=== PATIENT | male | born 1980 | race Caucasian/White ===

== ENCOUNTER → 2023-03-31 15:51 | Outpatient (BNVA) | payer BC, SELFPAY | PROVIDERS: Visit Provider Internal Medicine Rheumatology ==

== ENCOUNTER 2023-10-03 14:58 | Outpatient (REF) | payer BC, SELFPAY ==
[2023-10-03 16:03] LABS: MANUAL DIFF FLAG NO
[2023-10-03 16:13] LABS: Basophils Absolute Auto 0.1 X10*3/uL (0.0-0.2); Basophils Percent Auto 0.8 % (0-2); Eosinophils Absolute Auto 0.3 X10*3/uL (0.0-0.4); Eosinophils Percent Auto 4.6 % (0-4); Hematocrit 40.9 % (42.0-52.0); Hemoglobin 14.4 g/dl (14.0-18.0); Imm Gran Abs Auto 0.02 X10*3/uL (0.00-0.03); Imm Gran Pct Auto 0.3 % (0.0-0.4); Lymphocytes Absolute Auto 1.6 X10*3/uL (1.2-4.9); Lymphocytes Percent Auto 26.2 % (20-40); Mean Corpuscular HGB Conc 35.2 g/dl (31.0-36.0); Mean Corpuscular Hemoglobin 32.1 pg (27.0-33.0); Mean Corpuscular Volume 91.1 fL (80.0-98.0); Monocytes Absolute Auto 0.4 X10*3/uL (0.1-1.2); Neutrophils Absolute Auto 3.8 x10*3/uL (2.0-8.3); Neutrophils Percent Auto 61.1 % (45-73); Platelet Count 232 X10*3/uL (160-400); Red Blood Count 4.49 X10*6/uL (4.60-5.80); Red Cell Distribution Width 12.6 % (11.0-16.0); White Blood Count 6.3 X10*3/uL (4.8-10.8)
[2023-10-03 16:30] LABS: C Reactive Protein 0.22 mg/dL (< or = 0.50)
[2023-10-03 17:27] LABS: Erythrocyte Sedimentation Rate 2 MM/HR (0-15)
[2023-10-04 04:45] LABS: HBc Num1 0.17 S/CO (0.00-0.79); HBsAGNum1 0.52 S/CO (0.00-0.99); Hepatitis A Antibody IgM 0.22 Index (0-0.79); Hepatitis B Core Antibody Nonreactive (Nonreactive); Hepatitis B Surface Antigen Negative (Negative); ~Hepatitis A Antibody IgM Nonreactive (Nonreactive)
[2023-10-04 04:51] LABS: HBS Num1 80.35 mIU/mL (0-7.99); ~HepC Num1 0.25 S/CO (0.00-0.79); ~Hepatitis B Surface Antibody REACTIVE (Nonreactive); ~Hepatitis C Antibody Nonreactive (Nonreactive)
== END 2023-10-03 14:59 | disposition home or self-care (01) ==
LOC: HO.HMGCLDS 14:58
PROVIDERS: Visit Provider Internal Medicine Rheumatology
DX: L40.50 Arthropathic psoriasis, unspecified (principal); Z79.899 Other long term (current) drug therapy
CPT/HCPCS: 36415; 85025; 85652; 86140; 86704; 86706; 86709; 86803; 87340

== ENCOUNTER 2023-10-06 15:10 | Outpatient (AMB) | payer BC, SELFPAY ==
[2023-10-06 15:17] VITALS: BP 146/98; PULSE 82; BMI 35.1
--- NOTE | 2023-10-06 15:17 | A.OFFVIS_ITS ---
Intake Vital Signs 10/06/23 15:17 Height 5 ft 7 in Weight 223 lb 15.834 oz BMI 35.1 BP 146/98 H Blood Pressure Location Rt brachial Position Sitting Pulse 82 Pulse Source Pulse Oximeter Intake Visit Reasons: psa Intake Note: Patient presents today to follow up on PsA. Patient stated he has not increased Humira weekly due to not having enough injections to do so, he is currently using Humira every 2 weeks. Last seen by Schu 04/10/23. Technician Telecommunication Systems Required: No Accompanied by: Self / Same As Patient Allergies No Known Allergies Allergy (Verified 10/06/23 15:18) HPI HPI Comments History of Present Illness Details The patient returns for evaluation of his psoriasis and psoriatic arthritis. He remains on the Humira 40 mg every 2 weeks. We had hoped to increase the frequency of that medication as he seems to get more symptoms in the last 4-5 days after the Humira injection. This mostly consists of increased pain in the lateral hips, buttocks, and knees and feet. No swelling is noted. Most of the pains are noted when he 1st gets up in the morning and last for about 2 hours. He remains with dystrophic nails but they are not painful. He has some patches of inflamed skin on the chest. I had been hoping that he would do the lab work shortly after the last visit so we could put the prior authorization through with fresh lab work. He did get the sed rate and CRP done and those were normal. The hepatitis serologies were negative but he was not able to get the T spot testing done because of its necessity to be done in the mornings. 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 He has not had any foreign travel or exposure to people with tuberculosis so I think the risk is extremely low that he would develop TB. He had some a series of negative QuantiFERON testing done over the past 7 years and they all were negative. The last was about 2 years ago. [facility] Medical History Long-term use of immunosuppressant medication Psoriasis Psoriatic arthritis Surgical History History of surgery Hx of vasectomy History of carpal tunnel surgery S/P right rotator cuff repair History of rotator cuff surgery Family History Father Prostate cancer, Onset Age: 65 Mother Type 2 diabetes mellitus Paternal Grandmother Stroke Social History Alcohol intake: current Alcohol intake frequency: a few times a week Alcohol type: beer Patient Tobacco Use Status: Current everyday Tobacco user Cigarette Packs Per Day: 0.5 Cigarettes Per Day: 10 Current occupational status: employed Current occupation: [employer] Review of Systems Const Details: Negative for appetite change, weight change, fever, chills, malaise and fatigue Eyes Details: Negative for vision change, dry eyes,headaches and dizziness ENT Details: Negative for hearing change, tinnitus, oral ulcer, nose bleeds and oral dryness. Card Details: Negative chest pain, edema and syncope Resp Details: Negative for SOB, cough and wheezing GI Details: Negative indigestion/heartburn, nausea, abdominal pain, bowel changes, diarrhea, constipation and bloody stool. Endo Details: Negative for polyuria and polydypsia Juwan/Lymph Details: Negative for excessive bruising or bleeding. Physical Exam Vital Signs: Last Vital Signs Pulse 82 10/06/23 15:17 BP 146/98 H 10/06/23 15:17 BMI result Body Mass Index 35.1 APPEARANCE: Patient in no acute distress EYES no redness, pupils equal and reactive to light, eyelids normal SKIN: There are dystrophic nail changes in the right 4th fingernail and the 2nd through 5th fingernail on the left. None of these are tender today. The other nails look normal. The left hand fingers all have brownish pains consistent with tobacco stains. He has scattered patches of scaly, red skin across the abdomen and anterior chest. Also there is some irritated skin in the ear canals. JOINT EXAM:.?? Cervical Spine: decrease in lateral flexion but without pain.? No tenderness. Thoracic Spine:.? No scoliosis.? No tenderness on palpation. Lumbar Spine:.? Alignment normal.? Full range of motion without pain, no tenderness. Chest Wall:.? No tenderness, swelling, increased warmth or erythema. Hands:.? Normal pain-free range of motion without tenderness, swelling, increased warmth or erythema. 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 No flexor tendon triggering or tenderness.. Wrists:.? Normal pain-free range of motion without tenderness, swelling, increased warmth or erythema. Elbows: Right: Slight pain with extremes of normal flexion or extension. No tenderness or swelling over the lateral epicondyle or the joint space. Left: Normal pain-free range of motion without tenderness, swelling, increased warmth or erythema. Shoulders:.??Left: Mild discomfort with extremes of motion but no weakness or swelling.? No adenopathy.? Right:? Full range of motion without pain. No tenderness, weakness, swelling, increased warmth or erythema. Hips:.? Full range of motion with some lumbar and lateral pain with extremes of internal or external rotation. No groin pain with motion. Hip bursa:.? No tenderness. Knees:.?? Normal pain-free range of motion without tenderness, swelling, increased warmth or erythema.? There is no effusion or crepitation Ankles:.? Normal pain-free range of motion without tenderness, swelling, increased warmth or erythema. Feet: Normal pain-free range of motion without tenderness, swelling, increased warmth or erythema. ? Results Reviewed Results Reviewed: Laboratory Tests 10/03/23 15:05 WBC 6.3 ESR 2 C-Reactive Protein 0.22 Laboratory Tests 10/03/23 15:05 Hepatitis A IgM Ab Nonreactive Hep Bs Antigen Negative Hep Bs Antibody REACTIVE Hep B Core Total Ab Nonreactive Hepatitis C Ab (EIA) Nonreactive Assessment & Plan Assessment & Plan (1) Psoriasis: Comment: with nail involvement Code(s): L40.9 - Psoriasis, unspecified (2) Long-term use of immunosuppressant medication: Code(s): Z79.899 - Other intermediate manager (current) drug therapy (3) Psoriatic arthritis: Comment: Sulfasalazine started 09/24/16, changed (failure) to Humira 12/2016 Code(s): L40.50 - Arthropathic psoriasis, unspecified Plan Psoriatic arthritis and psoriasis with suboptimal control on the Humira. He does get a good response in the 1st week or so after the Humira but then symptoms worsen towards the 2nd week after the Humira. We will see if we can put through a prior authorization if needed for weekly Humira. He will try to get the T spot testing done if possible but I think it is very low likely that he is going to be a positive test. A follow-up in 3 months is recommended. If he does well on the weekly Humira he could push that next visit out to 6 months. Coding Level of Care Code Est Pt Level 3 (71432) Diagnoses Psoriasis L40.9 Long-term use of immunosuppressant medication Z79.899 Psoriatic arthritis L40.50
== END 2023-10-06 16:14 | disposition home or self-care (01) ==
PROVIDERS: Visit Provider Internal Medicine Rheumatology
DX: L40.9 Psoriasis, unspecified (principal); Z79.899 Other long term (current) drug therapy; L40.50 Arthropathic psoriasis, unspecified
CPT/HCPCS: 99213

== ENCOUNTER → 2023-10-06 15:10 | Outpatient (BNVA) | payer BC, SELFPAY | PROVIDERS: Visit Provider Internal Medicine Rheumatology ==

== ENCOUNTER 2024-09-01 15:29 | Outpatient (AMB) | payer BC, SELFPAY ==
[2024-09-01 15:37] VITALS: BP 122/68; PULSE 62; O2SAT 98; BMI 33.5
--- NOTE | 2024-09-01 15:37 | A.OFFVIS_ITS ---
Vital Signs 3 09/01/24 15:37 Height 5 ft 7 in Weight 213 lb 10.047 oz BMI 33.5 BP 122/68 Blood Pressure Location Lt brachial Position Sitting Pulse 62 Pulse Source Pulse Oximeter Pulse Oximetry (%) 98 Oxygen Delivery Method Room Air Intake Visit Reasons: psa/CM Intake Note: Patient last seen by Johnathan Smith on 10/06/23. Presents today for PsA follow up. Patient would like refill of Econazole. Allergies No Known Allergies Allergy (Verified 10/06/23 15:18) Medication List - Last Reconciled 09/01/24 by Catalina Hoffman MD betamethasone dipropionate 0.05% 1 appl topical DAILY clobetasol 0.05% grams topical BID econazole 1% 1 appl topical BID Humira(CF) Pen (adalimumab) 40 mg (0.4 mL) subcut QWEEK NS HPI Comments Details: This is a 44-year-old male with psoriasis and psoriatic arthritis who presents for follow-up. He was last seen by Dr. Jacobs 09/2023. He had an appointment in March but it was canceled. Last visit Humira was advanced to 40 mg weekly. Patient stated that since Humira was advanced to weekly there has not been much change. He states that he continues to have pain in his fingers. Associated with minimal swelling. Generalized morning stiffness lasting 20-30 minutes. 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 He continues to have intermittent psoriasis rashes on his arms and torso. States that they get worse in the summer when he is sweating more. [facility] Medical History Long-term use of immunosuppressant medication Psoriasis Psoriatic arthritis Surgical History History of surgery Hx of vasectomy History of carpal tunnel surgery S/P right rotator cuff repair History of rotator cuff surgery Family History Father Prostate cancer, Onset Age: 65 Mother Type 2 diabetes mellitus Paternal Grandmother Stroke Social History Alcohol intake: current Alcohol intake frequency: a few times a week Alcohol type: beer Patient Tobacco Use Status: Current everyday Tobacco user Cigarette Packs Per Day: 0.5 Cigarettes Per Day: 10 Current occupational status: employed Current occupation: Formerly [employer] Review of Systems [facility] [facility] [employer] Reports arthralgias, Reports joint swelling and Reports stiffness Skin/Breast Reports lesions, Reports nail changes and Reports rash Physical Exam Vital Signs: Last Vital Signs Pulse 62 09/01/24 15:37 BP 122/68 09/01/24 15:37 Pulse Ox 98 09/01/24 15:37 Oxygen Delivery Method Room Air 09/01/24 15:37 BMI result Body Mass Index 33.5 Const General: cooperative, healthy appearing and comfortable Nutritional Appearance: obese Orientation/consciousness: patient oriented x3 Limitations: no limitations HEENT Head: Yes normocephalic and Yes atraumatic Mouth: moist mucous membranes Resp Effort & Inspection: normal respiratory effort and able to speak in complete sentences Auscultation: clear to auscultation bilaterally Neuro General: patient oriented x3 Extrem Other: There is no active synovitis. No swollen or tender joints on exam. Normal bilateral hand gis application developer strength No sausage digits Significant onycholysis Psoriasis patches on arms and , chest and abdomen Assessment & Plan Assessment & Plan (1) Psoriatic arthritis: Comment: Sulfasalazine started 09/24/16, changed (failure) to Humira 12/2016 Humira advanced to weekly 10/2023 Code(s): L40.50 - Arthropathic psoriasis, unspecified Category: Medical Plan: This is a 44-year-old male with psoriasis and psoriatic arthritis who presents for follow-up. Since Humira was advanced to once weekly dosing since the beginning of the year. Patient has not noticed much improvement. Patient continues to complain of joint pains. Continues to have some morning stiffness lasting 20 minutes or so. There are no swollen joints on exam. I think the inflammatory component of his joint pains is well controlled, his pains are likely degenerative and mechanical. 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 However he continues to have psoriasis rashes and psoriasis nail changes. We discussed switching to Taltz or Cosentyx which may have better skin and nail efficacy rather than Humira. Patient will think about it and let us know For now continue with Humira 40 mg weekly Continue with topical steroids as needed for active psoriasis rashes Patient will do labs in week. Follow-up in 6 months (2) Psoriasis: Comment: with nail involvement Code(s): L40.9 - Psoriasis, unspecified Category: Medical (3) Long-term use of immunosuppressant medication: Code(s): Z79.899 - Other terminologist (current) drug therapy Category: Medical Plan: Side effects of Humira were discussed with the patient in detail including increased risk of infection, demyelinating disease, reactivation of latent TB, possible increased risk of solid and skin tumors. Patient fully aware. Advised patient to seek medical care [facility] if patient has an infection and advised patient to stop the medication until the infection is resolved. Plan I spent 30 minutes reviewing patient's chart, evaluating patient, ordering diagnostic workup, counseling patient and documenting in the chart Orders: Orders 2 Comprehensive Met. Panel Today L40.50 - Arthropathic psoriasis, unspecified Hepatitis A,B,C Profile Today Z11.59 - Encounter for screening for other viral diseases Complete Blood Count Auto Diff Today L40.50 - Arthropathic psoriasis, unspecified C Reactive Protein Today L40.50 - Arthropathic psoriasis, unspecified Erythrocyte Sedimentation Rate Today L40.50 - Arthropathic psoriasis, unspecified T Spot TB Today Z11.7 - Encounter for testing for latent tuberculosis infection Medications: Refilled 2 betamethasone dipropionate 0.05% 1 appl topical DAILY 45 grams 3RF L40.9 - Psoriasis, unspecified Coding Level of Care Code Est Pt Level 4 (83764) Complex EM visit Add On G2211 Diagnoses Psoriatic arthritis L40.50 Psoriasis L40.9 Long-term use of immunosuppressant medication Z79.899
== END 2024-09-01 15:56 | disposition home or self-care (01) ==
LOC: HO.RHE 15:30
PROVIDERS: PCP Internal Medicine; Visit Provider Student in an Organized Health Care Education/Training Program
DX: L40.50 Arthropathic psoriasis, unspecified (principal); L40.9 Psoriasis, unspecified; Z79.899 Other long term (current) drug therapy
CPT/HCPCS: 99214

== ENCOUNTER → 2024-09-01 15:29 | Outpatient (BNVA) | payer BC, SELFPAY | PROVIDERS: PCP Internal Medicine; Visit Provider Student in an Organized Health Care Education/Training Program ==

== ENCOUNTER 2025-03-22 13:49 | Outpatient (REF) | payer BC, SELFPAY ==
[2025-03-22 14:02] LABS: MANUAL DIFF FLAG NO
--- OUTSIDE RECORDS SUMMARY | 2025-03-22 14:07 | XMS_ITS | Encounter Summary ---
Author Organization [facility] Address [address] [place] [address] Care Team Providers Care Goldbeater Name Role Phone Unavailable Primary Care Provider Unavailabl e Reason for Referral * Consultation (Routine) - Closed Specialty Diagnoses / Procedures Referred By Contac t Referred To Contact Rheumatology Diagnoses History of psoriatic arthritis Jc Bates MD [address] [place] [id number] Phone: tel: fax: [facility] - Rheumatology [address] [place] [address] [address] [place] [address] Phone: tel: fax: Referral ID Status Reason Start Date Expiration Date V isits Requested Visits Authorized [id number] Closed Specialty Services Required 03/02/2025 03/02/2026 1 1 Encounter Details Date Type Department Care Team (Late st Contact Info) Description 03/02/2025 Telephone Adult Medicine [address] [phone] Jc Bates MD [address] [place] [id number] Social History Tobacco Use Types Packs/Day Years Used Date Smoking Tobacco: Every Day Cigarettes Smokeless Tobacco: Never Alcohol Use Standard Drinks/Week Comments Yes 0 (1 standard drink = 0.6 oz pur e alcohol) Sex and Gender Information Value Date Recorded Sex Assigned at Not on file Legal Sex Male 8:23 PM EST Gender Identity Not on file Sexual Orientation Not on file documented as of this encounter Progress Notes * Radha Hogan - 03/02/2025 4:08 PM EDT What insurance does the patient have today? Payor: @[email or web address] Referrals cannot be processed if the insurance is not accurate. If the insurance listed above is NO BILLING INFORMATION FOUND FOR THIS ENCOUNTER then the patients correct insurance must be obtainedand registered in [facility] or their referral can not be processed. Name of person calling to request this referral? patient Referred To Provider (Include first and last name): Catalina Hoffman MD NPI (if known): [id number] Order/Specialty requested rheumatology Chief Complaint (Note: This is not a body part or a procedure): psoriatic arthritis Has the patient seen provider for this problem/Dx before? yes Referred To Provider Address: [address] [place] [address] Referred To Provider Referred To Provider Fax: [phone] Does patient have an appointment scheduled?: yes If yes, what is the date of the appointment?: 03/28/2025 Is this a retro request? no Number of visits requested: 6 documented in this encounter Plan of Treatment Scheduled Referrals Name Type Priority Associated Diagnoses Order Schedule Ambulatory referral to Rheumatology Outpatient Referral Routine History of psoriatic arthritis Expected: 03/02/2025, Expires: 03/02/2026 documented as of this encounter Visit Diagnoses Diagnosis History of psoriatic arthritis- Primary Personal history of arthritis documented in this encounter
[2025-03-22 14:46] LABS: Basophils Absolute Auto 0.1 X10*3/uL (0.0-0.2); Basophils Percent Auto 0.7 % (0-2); Eosinophils Absolute Auto 0.2 X10*3/uL (0.0-0.4); Eosinophils Percent Auto 2.8 % (0-4); Hematocrit 44.1 % (42.0-52.0); Hemoglobin 15.8 g/dl (14.0-18.0); Imm Gran Abs Auto 0.02 X10*3/uL (0.00-0.03); Imm Gran Pct Auto 0.3 % (0.0-0.4); Lymphocytes Absolute Auto 1.7 X10*3/uL (1.2-4.9); Lymphocytes Percent Auto 24.1 % (20-40); Mean Corpuscular HGB Conc 35.8 g/dl (31.0-36.0); Mean Corpuscular Hemoglobin 32.5 pg (27.0-33.0); Mean Corpuscular Volume 90.7 fL (80.0-98.0); Mean Platelet Volume 9.6 fL (9.4-12.4); Monocytes Absolute Auto 0.6 X10*3/uL (0.1-1.2); Monocytes Percent Auto 8.8 % (2-11); Neutrophils Absolute Auto 4.5 x10*3/uL (2.0-8.3); Neutrophils Percent Auto 63.3 % (45-73); Platelet Count 240 X10*3/uL (160-400); Red Blood Count 4.86 X10*6/uL (4.60-5.80); Red Cell Distribution Width 13.1 % (11.0-16.0); White Blood Count 7.1 X10*3/uL (4.8-10.8)
[2025-03-22 15:31] LABS: Erythrocyte Sedimentation Rate 3 MM/HR (0-15)
[2025-03-22 16:17] LABS: Alanine Aminotransferase 50 U/L (0-40); Albumin Level 4.7 g/dL (3.5-5.0); Alkaline Phosphatase 41 U/L (39-117); Anion Gap 12 (12-20); Aspartate Amino Transferase 43 U/L (5-37); Bilirubin Total 0.4 mg/dL (0.0-1.0); Blood Urea Nitrogen 17 mg/dL (9-16); C Reactive Protein 0.25 mg/dL (< or = 0.50); Calcium 9.3 mg/dL (8.4-10.2); Carbon Dioxide 26 mmol/L (22-29); Chloride 104 mmol/L (96-108); Estimated Glomerular Filt Rate > 60; Glucose Random 97 mg/dL (60-115); Potassium 4.1 mmol/L (3.3-5.1); Sodium 138 mmol/L (135-145); Total Protein 7.8 g/dL (6.5-8.0)
[2025-03-23 09:00] LABS: HBsAGNum1 0.32 S/CO (0.00-0.99); Hepatitis B Core Antibody Nonreactive (Nonreactive); Hepatitis B Surface Antigen Negative (Negative); ~HepC Num1 0.23 S/CO (0.00-0.79); ~Hepatitis A Antibody IgM Nonreactive (Nonreactive); ~Hepatitis B Surface Antibody REACTIVE (Nonreactive); ~Hepatitis C Antibody Nonreactive (Nonreactive)
[2025-03-25 00:34] LABS: TS Negative Control Passed; TS Panel A 0; TS Panel B 0; TS Positive Control Passed; TSpotTB Negative (Negative)
== END 2025-03-22 13:50 | disposition home or self-care (01) ==
LOC: HO.LAB 13:49
PROVIDERS: PCP Internal Medicine; Visit Provider Student in an Organized Health Care Education/Training Program
DX: L40.50 Arthropathic psoriasis, unspecified (principal); Z11.7 Encounter for testing for latent tuberculosis infection; Z11.59 Encounter for screening for other viral diseases
CPT/HCPCS: 36415; 80053; 85025; 85652; 86140; 86481; 86704; 86706; 86709; 86803; 87340

== ENCOUNTER 2025-03-29 15:50 | Outpatient (AMB) | payer BC, SELFPAY ==
[2025-03-29 15:53] VITALS: BP 130/72; PULSE 81; O2SAT 98; BMI 34.3
--- NOTE | 2025-03-29 15:53 | A.OFFVIS_ITS ---
Vital Signs 03/29/25 15:53 Height 5 ft 7 in Weight 218 lb 14.704 oz BMI 34.3 BP 130/72 Blood Pressure Location Lt brachial Position Sitting Pulse 81 Pulse Source Pulse Oximeter Pulse Oximetry (%) 98 Oxygen Delivery Method Room Air Intake Visit Reasons: PsA Intake Note: Patient last seen by Doctor Catalina Hoffman on 09/01/24. Presents today for PsA follow up and test results. Patient would like refill of Econazole cream. Accompanied by: Self / Same As Patient Allergies No Known Allergies Allergy (Verified 03/29/25 15:57) Medication List - Last Reconciled 03/29/25 by Kayce Saxena MD betamethasone dipropionate 0.05% 1 appl topical DAILY clobetasol 0.05% grams topical BID econazole nitrate 1% 1 appl topical BID Humira(CF) Pen (adalimumab) 40 mg (0.4 mL) subcut QWEEK NS HPI Comments Details: Patient is a 44-year-old male with psoriasis complicated by psoriatic arthritis here today for follow up Interval History: Patient last seen 09/01/[address] Hoffman. At that time he was following up for his psoriasis and psoriatic arthritis. He was on Humira 40 mg weekly with continued pain in his fingers and 20-30 minutes of morning stiffness. Also with intermittent psoriatic rashes on his arms and torso which get worse in the summer when he is sweating more. Given his significant psoriasis and nail disease it was recommended to switch to Taltz or Cosentyx however patient declined at that time. Still complaining of AM stiffness 20-30 min Main issue is his skin with continue PsO rash to his torso and neck, as well as bilateral arms Rheumatologic History: Sulfasalazine started 09/24/16, changed (failure) to Humira 12/2016 Humira advanced to weekly 10/[address] Jacobs: The patient presents today for evaluation of his psoriasis, psoriatic arthritis and tinea skin infections. I had last seen him back in March of 2021. The joint symptoms seem stable on Humira 40 mg every 2 weeks. He does have clobetasol cream for the psoriasis and uses econazole cream for rash is across the chest that seems to be due to tinea. 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 Medically he had COVID twice in the last year and half. The 2nd event was relatively minor illness. He was hospitalized back in November with a knee abrasion that got infected such that cellulitis developed. He was treated with intravenous antibiotics and then oral antibiotics and the symptoms have subsided. He had to hold the Humira during the COVID episodes and during the cellulitis so there was a break in treatment that resulted in a flare-up of his skin disease and arthritis. He is not taking any analgesics currently. Current Rheumatology Medication(s): Humira 40mg SC weekly [facility] Medical History Long-term use of immunosuppressant medication Psoriasis Psoriatic arthritis Surgical History History of surgery Hx of vasectomy History of carpal tunnel surgery S/P right rotator cuff repair History of rotator cuff surgery Family History Father Prostate cancer, Onset Age: 65 Mother Type 2 diabetes mellitus Paternal Grandmother Stroke Social History Alcohol intake: current Alcohol intake frequency: a few times a week Alcohol type: beer Patient Tobacco Use Status: Current everyday Tobacco user Cigarette Packs Per Day: 0.5 Cigarettes Per Day: 10 Current occupational status: employed Current occupation: [employer] Review of Systems Const Details: Review of Systems Constitutional: Denies fever, chills, weight loss ENT: Denies vision changes, eye pain or eye redness, dental caries, dry mouth GI: Denies nausea, vomiting, diarrhea, abdominal pain, change in BM Pulm: Denies SOB, HURTADO, hemoptysis, wheezing Cards: Denies chest pain, palpitations Skin: Denies Raynaud's, rash, nail changes, photosensitivity, MALE MODEL: Denies headaches, weakness, paresthesias, recurrent falls MSK: as per HPI All other systems reviewed and are unremarkable except noted above Physical Exam Vital Signs: Last Vital Signs Pulse 81 03/29/25 15:53 BP 130/72 03/29/25 15:53 Pulse Ox 98 03/29/25 15:53 Oxygen Delivery Method Room Air 03/29/25 15:53 BMI result Body Mass Index 34.3 Vital signs reviewed Physical Examination CONSTITUITIONAL Patient alert and cooperative. Well appearing and in no apparent painful distr ess HEENT Conjunctiva and sclera clear. ?Pupils equal round and reactive to light. ?No lymphadenopathy. ? CHEST/RESPIRATORY SYSTEM Normal respiratory effort and able to speak in complete sentences. ?Clear to auscultation bilaterally. ?No crackles, rales, rhonchi, wheezes heard. CARDIAC SYSTEM Regular rate and rhythm. ?S1 and S2 heard no murmurs. ?Radial pulses intact bilaterally MSK Hands: ?Able to make a fist. No synovitis noted to the MCPs, PIPs or DIPs. ?No tenderness to palpation of these joints. No deformities noted. ? Wrists: ?Full range of motion at the wrists without pain. ?No tenderness to palpation or synovitis noted to the wrists. Elbows: Full range of motion without pain. No tenderness, weakness, swelling, increased warmth or erythema. Shoulders: Full range of active range of motion without pain. No tenderness, weakness, swelling, increased warmth or erythema. Knees: ?Full range of motion. ?No tenderness, swelling, increased warmth or erythema.?No effusion or crepitations Ankles: Full range of motion. ?No tenderness, swelling, increased warmth or erythema.? Feet: ?Negative squeeze test. ?No tenderness to palpation or swelling of the MTPs. Tender points:?No tenderness to palpation of the bilateral trapezius, supraspinatus, greater trochanters, anterior costochondral junctions, bilateral gluteal areas, bilateral suboccipital muscle insertions SKIN Psoriatic plaques covering about 18% of his body surface area Onycholysis noted to nails on bilateral hands. Results Reviewed Results Reviewed: Laboratory Tests 03/22/25 14:00 WBC 7.1 RBC 4.86 Hgb 15.8 Hct 44.1 MCV 90.7 MCH 32.5 MCHC 35.8 Plt Count 240 ESR 3 Sodium 138 Potassium 4.1 Chloride 104 Carbon Dioxide 26 BUN 17 H Creatinine 0.95 AST 43 H ALT 50 H C-Reactive Protein 0.25 Infectious serologies 03/22/25 14:00 Hepatitis A IgM Ab Nonreactive Hep Bs Antigen Negative Hep Bs Antibody REACTIVE Hep B Core Total Ab Nonreactive Hepatitis C Ab (EIA) Nonreactive TB Test (T-Spot) Com Negative Assessment & Plan Assessment & Plan (1) Psoriasis: Comment: with nail involvement Code(s): L40.9 - Psoriasis, unspecified Category: Medical Plan: #PsO/PsA Patient is a 44-year-old male with psoriasis complicated by psoriatic arthritis here today for follow up. His psoriasis is not well controlled with about 18- 20% of his body surface area covered with psoriatic plaques. He also has significant onycholysis indicative of psoriatic nail disease. We will need to change his Humira therapy. Plan - Stop Humira - Start Taltz: 160 mg once, followed by 80 mg at weeks 2, 4, 6, 8, 10, and 12, and then 80 mg every 4 weeks - RTC 4 months - Labs before visit: CBC, CMP, ESR, CRP (2) Psoriatic arthritis: Comment: Sulfasalazine started 09/24/16, changed (failure) to Humira 12/2016 Humira advanced to weekly 10/2023 Code(s): L40.50 - Arthropathic psoriasis, unspecified Category: Medical Plan: #PsO/PsA Patient is a 44-year-old male with psoriasis complicated by psoriatic arthritis here today for follow up. His psoriasis is not well controlled with about 18- 20% of his body surface area covered with psoriatic plaques. He also has significant onycholysis indicative of psoriatic nail disease. We will need to change his Humira therapy. 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 ?Risks include infections, injection site reactions, activation of inflammatory bowel disease. Benefits include improved disease activity. Discussed with patient that if she is feeling sick or having flu-like symptoms she is to hold the medication that week and resolved the following week. Plan I spent 36 minutes reviewing the record and labs, taking a history, examining the patient, discussing the treatment plan, ordering diagnostic work up and documenting in the medical record Orders: Orders C Reactive Protein 4 Months L40.50 - Arthropathic psoriasis, unspecified Erythrocyte Sedimentation Rate 4 Months L40.50 - Arthropathic psoriasis, unspecified Complete Blood Count Auto Diff 4 Months L40.50 - Arthropathic psoriasis, un specified Comprehensive Met. Panel 4 Months L40.50 - Arthropathic psoriasis, unspecified Medications: New ixekizumab (Taltz Autoinjector (2 Pack)) 160 mg once, followed by 80 mg at weeks 2, 4, 6, 8, 10, and 12 80 mg subcut Q2W 10 mL 0RF L40.50 - Arthropathic psoriasis, unspecified, L40.9 - Psoriasis, unspecified ixekizumab (Taltz Autoinjector) To start after the induction dose 80 mg subcut Q4W 1 mL 5RF L40.50 - Arthropathic psoriasis, unspecified, L40.9 - Psoriasis, unspecified Refilled econazole nitrate 1% 1 appl topical BID 85 grams 3RF L40.9 - Psoriasis, unspecified Discontinued Humira(CF) Pen (adalimumab) Discontinued Reason: Doctor's Order 40 mg (0.4 mL) subcut QWEEK 4 ea 2RF NS L40.50 - Arthropathic psoriasis, unspecified, L40.9 - Psoriasis, unspecified Coding Level of Care Code Est Pt Level 4 (43577) Complex EM visit Add On G2211 Diagnoses Psoriasis L40.9 Psoriatic arthritis L40.50 Long-term current use of ixekizumab Z79.620
--- OUTSIDE RECORDS SUMMARY | 2025-03-29 17:03 | XMS_ITS | Encounter Summary ---
Author Organization [facility] Address [address] [place] [address] Care Team Providers Care Chair Finisher Name Role Phone Unavailable Primary Care Provider Unavailabl e Reason for Referral * Consultation (Routine) - Closed Specialty Diagnoses / Procedures Referred By Contac t Referred To Contact Rheumatology Diagnoses History of psoriatic arthritis Jc Bates MD [address] [place] [id number] Phone: tel: fax: [facility] - Rheumatology [address] [place] [address] [address] [place] [address] Phone: tel: fax: Referral ID Status Reason Start Date Expiration Date V isits Requested Visits Authorized [id number] Closed Specialty Services Required 03/02/2025 03/02/2026 1 1 Encounter Details Date Type Department Care Team (Late st Contact Info) Description 03/02/2025 Telephone Adult Medicine [address] [phone] Jc Bates MD [address] [place] [id number] Social History Tobacco Use Types Packs/Day Years [...] correct insurance must be obtainedand registered in [facility] or their referral can not be processed. Name of person calling to request this referral? patient Referred To Provider (Include first and last name): Catalina Hoffman MD NPI (if known): [id number] Order/Specialty requested rheumatology Chief Complaint (Note: This is not a body part or a procedure): psoriatic arthritis Has the patient seen provider for this problem/Dx before? yes Referred To Provider Address: [address] [place] [address] Referred To Provider Referred To Provider Fax: [phone] Does patient have an appointment scheduled?: yes [...]
== END 2025-03-29 16:25 | disposition home or self-care (01) ==
LOC: HO.RHE 15:51
PROVIDERS: PCP Internal Medicine; Visit Provider Student in an Organized Health Care Education/Training Program
DX: L40.9 Psoriasis, unspecified (principal); L40.50 Arthropathic psoriasis, unspecified; Z79.620 Long term (current) use of immunosuppressive biologic
CPT/HCPCS: 99214

== ENCOUNTER 2025-08-05 15:56 | Outpatient (AMB) | payer BC, SELFPAY ==
--- NOTE | 2025-08-05 16:01 | A.OFFVIS_ITS ---
Vital Signs 08/05/25 16:08 Height 5 ft 7 in Weight 221 lb 5.506 oz BMI 34.7 BP 160/100 H Blood Pressure Location Rt brachial Position Sitting Pulse 73 Pulse Source Pulse Oximeter Pulse Oximetry (%) 99 Oxygen Delivery Method Room Air Intake Visit Reasons: f/u PsA Intake Note: Patient last seen by Doctor Kayce Saxena on 03/29/25. Presents today for PsA follow up and test results. Accompanied by: Self / Same As Patient Allergies No Known Allergies Allergy (Verified 08/05/25 16:08) Medication List - Last Reconciled 08/05/25 by Kayce Saxena MD betamethasone dipropionate 0.05% 1 appl topical DAILY clobetasol 0.05% grams topical BID econazole nitrate 1% 1 appl topical BID ixekizumab (Taltz Autoinjector (2 Pack)) 80 mg subcut Q2W 8 doses ixekizumab (Taltz Autoinjector) 80 mg subcut Q4W HPI Comments Details: Patient is a 45-year-old male with psoriasis complicated by psoriatic arthritis here today for follow up Interval History: Patient last seen 03/29/25 with me - On Humira 40mg SC weekly - Still complaining of AM stiffness 20-30 min - Main issue is his skin with continue PsO rash to his torso and neck, as well as bilateral arms - Changed to Taltz Today - On Taltz 80mg every 4 weeks - [place] he was doing better on every 2 weeks - Joints are stable, states it works about the same as Humira in terms of his joints Rheumatologic History: Sulfasalazine started 09/24/16, changed (failure) to Humira 12/2016 Humira advanced to weekly 10/[address] Jacobs: The patient presents today for evaluation of his psoriasis, psoriatic arthritis and tinea skin infections. I had last seen him back in March of 2021. The joint symptoms seem stable on Humira 40 mg every 2 weeks. He does have clobetasol cream for the psoriasis and uses econazole cream for rash is across the chest that seems to be due to tinea. 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 Medically he had COVID twice in the last year and half. The 2nd event was relatively minor illness. He was hospitalized back in November with a knee abrasion that got infected such that cellulitis developed. He was treated with intravenous antibiotics and then oral antibiotics and the symptoms have subsided. He had to hold the Humira during the COVID episodes and during the cellulitis so there was a break in treatment that resulted in a flare-up of his skin disease and arthritis. He is not taking any analgesics currently. Current Rheumatology Medication(s): Taltz 80mg every 4 weeks [facility] Medical History Long-term use of immunosuppressant medication Psoriasis Psoriatic arthritis Surgical History History of surgery Hx of vasectomy History of carpal tunnel surgery S/P right rotator cuff repair History of rotator cuff surgery Family History Father Prostate cancer, Onset Age: 65 Mother Type 2 diabetes mellitus Paternal Grandmother Stroke Social History Alcohol intake: current Alcohol intake frequency: a few times a week Alcohol type: beer Patient Tobacco Use Status: Current everyday Tobacco user Cigarette Packs Per Day: 0.5 Cigarettes Per Day: 10 Current occupational status: employed Current occupation: [employer] Review of Systems Const Details: Review of Systems Constitutional: Denies fever, chills, weight loss ENT: Denies vision changes, eye pain or eye redness, dental caries, dry mouth GI: Denies nausea, vomiting, diarrhea, abdominal pain, change in BM Pulm: Denies SOB, HURTADO, hemoptysis, wheezing Cards: Denies chest pain, palpitations Skin: Denies Raynaud's, rash, nail changes, photosensitivity, CHIEF PSYCHOLOGIST: Denies headaches, weakness, paresthesias, recurrent falls MSK: as per HPI All other systems reviewed and are unremarkable except noted above Physical Exam Exam Exam: Vital signs reviewed Physical Examination CONSTITUITIONAL Patient alert and cooperative. Well appearing and in no apparent painful distress MSK Hands * Right Hand: Able to make a fist. No swelling or tenderness to palpation of the MCPs, PIPs or DIPs. No deformities noted. * Left Hand: Able to make a fist. No swelling or tenderness to palpation of the MCPs, PIPs or DIPs. No deformities noted. Wrists * Right Wrist: Full ROM to flexion and extension. No swelling or TTP * Left Wrist: Full ROM to flexion and extension. No swelling or TTP Elbows * Right Elbow: Full ROM. No swelling or TTP. No TTP of the medial epicondyle. No TTP of the lateral epicondyle * Left Elbow: Full ROM. No swelling or TTP. No TTP of the medial epicondyle. No TTP of the lateral epicondyle Shoulders * Right shoulder: Full ROM. No swelling noted. No TTP of the AC joint. No TTP of the subacromial bursa. No TTP of the posterior shoulder * Left shoulder: Full ROM. No swelling noted. No TTP of the AC joint. No TTP of the subacromial bursa. No TTP of the posterior shoulder Knees * Right knee: Full ROM. No swelling noted. No TTP of the knee joint line. No TTP of pes anserine bursa * Left knee: Full ROM. No swelling noted. No TTP of the knee joint line. No TTP of pes anserine bursa. Ankles * Right ankle: Good ankle dorsiflexion and plantar flexion. No swelling. No TTP of the ankle joint * Left ankle: Good ankle dorsiflexion and plantar flexion. No swelling. No TTP of the ankle joint Feet * Right foot: Negative squeeze test * Left foot: Negative squeeze test Tender points? * No tenderness to palpation of the bilateral trapezius, supraspinatus, anterior costochondral junctions, bilateral suboccipital muscle insertions SKIN Still with PsO to about 18% of BSA Onycholysis Vital Signs: Last Vital Signs Pulse 73 08/05/25 16:08 BP 160/100 H 08/05/25 16:08 Pulse Ox 99 08/05/25 16:08 Oxygen Delivery Method Room Air 08/05/25 16:08 BMI result Body Mass Index 34.7 Results Reviewed Results Reviewed: Laboratory Tests 03/22/25 14:00 WBC 7.1 RBC 4.86 Hgb 15.8 Hct 44.1 Plt Count 240 ESR 3 Sodium 138 Potassium 4.1 Chloride 104 Carbon Dioxide 26 BUN 17 H Creatinine 0.95 AST 43 H ALT 50 H C-Reactive Protein 0.25 Assessment & Plan Assessment & Plan (1) Psoriatic arthritis: Comment: Sulfasalazine started 09/24/16, changed (failure) to Humira 12/2016 Humira advanced to weekly 10/2023. D/c 01/2025 not effective for skin Taltz 01/2025 Code(s): L40.50 - Arthropathic psoriasis, unspecified Category: Medical Plan: #PsO/PsA Patient is a 45-year-old male with psoriasis complicated by psoriatic arthritis here today for follow up. His psoriasis is not well controlled with about 18- 20% of his body surface area covered with psoriatic plaques. Had some improvement after the initial dose eveyr 2 weeks but noticed return of PsO when he changed to every 4 weeks. Will increase the frequency back to every 2 weeks. 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 ?Risks include infections, injection site reactions, activation of inflammatory bowel disease. Benefits include improved disease activity. Discussed with patient that if she is feeling sick or having flu-like symptoms she is to hold the medication that week and resolved the following week. Plan I spent 35 minutes reviewing the record and labs, taking a history, examining the patient, discussing the treatment plan, ordering diagnostic work up and documenting in the medical record Orders: Orders Comprehensive Met. Panel 4 Months Z79.899 - Other usp (current) drug therapy C Reactive Protein 4 Months Z79.899 - Other middle or intermediate school principal (current) drug therapy Complete Blood Count Auto Diff 4 Months Z79.899 - Other middle or intermediate school principal (current) drug therapy Erythrocyte Sedimentation Rate 4 Months Z79.899 - Other usp (current) drug therapy Medications: Changed From ixekizumab (Taltz Autoinjector) To start after the induction dose 80 mg subcut Q4W 1 mL 5RF L40.50 - Arthropathic psoriasis, unspecified, L40.9 - Psoriasis, unspecified To ixekizumab (Taltz Autoinjector) To start after the induction dose 80 mg subcut Q2W 2 mL 5RF L40.50 - Arthropathic psoriasis, unspecified, L40.9 - Psoriasis, unspecified Discontinued ixekizumab (Taltz Autoinjector (2 Pack)) 160 mg once, followed by 80 mg at weeks 2, 4, 6, 8, 10, and 12 Discontinued Reason: Doctor's Order 80 mg subcut Q2W 10 mL 0RF L40.50 - Arthropathic psoriasis, unspecified, L40.9 - Psoriasis, unspecified Coding Level of Care Code Est Pt Level 4 (76865) Complex EM visit Add On G2211 Diagnoses Psoriatic arthritis L40.50 Long-term current use of ixekizumab Z79.620
[2025-08-05 16:08] VITALS: BP 160/100; PULSE 73; O2SAT 99; BMI 34.7
== END 2025-08-05 16:52 | disposition home or self-care (01) ==
LOC: HO.RHES 15:57
PROVIDERS: PCP Internal Medicine; Visit Provider Student in an Organized Health Care Education/Training Program
DX: L40.50 Arthropathic psoriasis, unspecified (principal); Z79.620 Long term (current) use of immunosuppressive biologic
CPT/HCPCS: 99214